=== PATIENT | male | born 1965 | race Caucasian/White ===

== ENCOUNTER 2025-02-27 06:47 | Emergency (ER) | payer SELFPAY ==
[2025-02-27] VITALS (8 sets, daily range): BP systolic 106–136; BP diastolic 60–65
--- NOTE | 2025-02-27 07:13 | ED.GENMED ---
History of Present Illness
General
Chief Complaint: Abdominal Pain
Source: patient
Exam Limitations: none
Time Seen by Provider: 02/27/25 07:03
History of Present Illness
History of Present Illness:
See MDM
Past History
Past History
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
ED Past Surgical History: None
Social History
Tobacco: Non-smoker
Alcohol: None
Personal:
Living: with family
Employment: Employed ([employer])
Family History
Family History: Other (Noncontributory)
Phy Exam
Physical Exam
Physical Exam:
See MDM
Course
Orders/Labs/Results
Orders:
Orders
02/27/25 06:58
EKG [Electrocardiogram (*1)] Urgent
Reason for Study: Abdominal Pain
02/27/25 06:59
EKG- Treatment ONCE
02/27/25 07:10
CT Abd/pelvis W Iv Cont Urgent
Comment:
Reason For Exam: upper abd pain
0.9% Sodium Chloride 1000 ml [Nss] 1,000 ml IV BOLUS
Ketorolac [Toradol] 30 mg IV NOW STA
Ondansetron Injectable [Zofran] 4 mg IV NOW STA
02/27/25 07:26
Complete Blood Count/With Diff Urgent
Comprehensive Metabolic Panel Urgent
Lipase Urgent
02/27/25 12:27
Oxycodone/Acetaminophen [Percocet 5/325] 1 tablet PO NOW STA
Abnormal Lab Results
02/27/25
07:26
WBC 13.7 H 10^3/uL
(4.8-10.8)
RBC 3.92 L 10^6/uL
(4.70-6.10)
Hgb 12.2 L g/dL
(13.0-18.0)
Hct 35.1 L %
(39.0-52.0)
MCH 31.1 H pg
(27.0-31.0)
Abs Immat Gran (auto) 0.1 H 10^3/uL
(0-0.05)
Absolute Neuts (auto) 10.3 H 10^3/uL
(1.4-6.5)
Absolute Monos (auto) 0.8 H 10^3/uL
(0.1-0.6)
Neutrophils % 75.3 H %
(42.2-75.2)
Lymphocytes % 18.1 L %
(20.5-51.1)
Glucose 266 H mg/dl
(70-99)
AST 16 L U/L
(17-59)
Total Protein 6.2 L g/dl
(6.3-8.2)
Lipase 903 H U/L
(23-300)
02/27/25 07:26
02/27/25 07:26
Vital Signs
Initial and Last Documented VS:
Initial Vital Signs
Temp Pulse Resp BP Pulse Ox
97.4 F 47 18 131/61 100
02/27/25 06:54 02/27/25 06:54 02/27/25 06:54 02/27/25 06:54 02/27/25 06:54
Last Documented Vital Signs
Temp Pulse Resp BP Pulse Ox
97.4 F 56 17 121/64 98
02/27/25 06:54 02/27/25 11:30 02/27/25 11:30 02/27/25 11:00 02/27/25 11:30
MDM/Problems Addressed
Differential Diagnosis Includes:
Note:
CHIEF COMPLAINT(S)
Abdominal pain
HISTORY OF PRESENT ILLNESS
The patient is a 60-year-old male presenting with abdominal pain that began approximately an hour and a half ago while he was asleep. The pain was significant enough to wake him from sleep. The patient describes the pain as occurring on both sides
of the abdomen and indicates discomfort upon palpation, especially when pressure is applied to the abdomen. He reports no changes in his bowel or eating habits and had no substantial meal the previous night. Additionally, the patient expresses
experiencing nausea. There is no history of surgeries on the abdomen. The patient denies chest pain, except for some discomfort in the chest area concurrent with the abdominal pain.
CHRONIC MEDICAL CONDITIONS SIGNIFICANTLY AFFECTING CARE
The patient mentions being on medication for anxiety
[employer]IAL [employer]MIN[employer]S AFFECTING HEALTH
Not applicable
ALLERGIES
None
PAST MEDICAL HISTORY
Anxiety
PAST SURGICAL HISTORY
None
MEDICATIONS
The patient confirms taking medication for anxiety
REVIEW OF SYSTEMS
- Gastrointestinal: Abdominal pain, nausea
- Respiratory: Discomfort on taking a deep breath
- Cardiovascular: Denies general chest pain but reports discomfort in the chest area
PHYSICAL EXAM
General: Alert, no acute distress.
Skin: Warm, dry.
Head: Normocephalic, atraumatic
Neck: Appears supple, trachea midline.
Eyes, Ears, Nose, Mouth, and Throat: Dry mucous membranes
Cardiovascular: No signs of cyanosis
Respiratory: Respirations are non-labored.
Abdomen: Non-distended. Mild tenderness to right upper and left upper quadrant without rebound
Musculoskeletal: No deformities
Neurological: No focal neurological deficit observed.
Psychiatric: Cooperative, appropriate mood and affect.
PROBLEM LIST
Acute:
- Abdominal pain
- Nausea
- Discomfort on breathing
Chronic:
- Hypertension
PLAN
- Conduct blood tests and electrocardiogram (EKG), which has been reported as within normal limits.
- Administer medication for nausea and provide intravenous fluids.
- Perform computed tomography (CT) scan of the abdomen to investigate possible surgical or infectious causes for the pain.
DIFFERENTIAL DIAGNOSIS
The Differential Diagnosis includes, in no particular order and is not limited to:
- Acute gastroenteritis
- Peptic ulcer disease
- Gallbladder disease (cholecystitis)
- Pancreatitis
- Intestinal obstruction
- Diverticulitis
- Gastric or intestinal perforation
- Renal colic
- Abdominal aortic aneurysm
- Myocardial infarction
EKG
My independent EKG interpretation is:
- Time of EKG: Not specified
- Rhythm: Sinus bradycardia with a sinus arrhythmia
- Heart rate: 51 beats per minute
- NM interval: Within normal limits
- QRS duration: Within normal limits
- QT interval: Within normal limits
- [place]: Normal axis
- Abnormalities observed: No ST elevation
SUMMARY OF ENCOUNTER
The 60-year-old male patient was seen in the emergency department due to the sudden onset of abdominal pain that began approximately an hour and a half ago while he was asleep. The pain was significant enough to wake him and was located on both
sides of the abdomen with discomfort upon palpation. Associated symptoms included nausea and some chest discomfort concurrent with the abdominal pain. Initial investigations included blood tests, the results of which revealed an elevated lipase
level, suggesting possible pancreatitis. A CT scan of the abdomen was conducted and showed no acute pathology. Given the elevated lipase and potential concern for pancreatitis, I discussed the case with the patient who ultimately felt comfortable
with outpatient management. We discussed dietary modifications and the necessity for follow-up with a service rig operator.
DISPOSITION
Discharge
ASSESSMENT
The patient presents with abdominal pain with significant tenderness and elevated lipase, suggestive of pancreatitis. CT scan shows no acute pathology.
EMERGENCY TREATMENTS ADMINISTERED
The patient was given medication for nausea and received intravenous fluids during the visit.
PLAN
The patient is advised to graduate his diet slowly to avoid exacerbating symptoms. Follow-up with a service rig operator is recommended for further evaluation of the elevated lipase and potential pancreatitis. The patient was instructed on return
precautions, including worsening pain or new symptoms.
INDEPENDENT REVIEW OF LABS AND INTERPRETATION OF TESTS
My independent review of the lipase test indicates an elevated lipase level, suggestive of pancreatitis.
My independent interpretation of the CT scan of the abdomen indicates no acute pathology, helping guide the decision for outpatient management.
PATIENT EDUCATION AND COUNSELING
The patient was educated on symptoms indicating possible complications, such as increased pain, fever, or vomiting, which should prompt immediate return to the emergency department. He was also counseled on dietary modifications to prevent
aggravation of his symptoms and the importance of follow-up care with a service rig operator.
FOLLOW-UP INSTRUCTIONS
The patient is instructed to follow up with a service rig operator for further evaluation of the elevated lipase and management of potential pancreatitis. He is also to seek medical attention if his symptoms worsen or new symptoms arise.
MEDICATION RECONCILIATION
The patient received medication for nausea and intravenous fluids during the visit.
MEDICAL DECISION MAKING
- Number and Complexity of Problems Addressed: Chronic conditions affecting care include hypertension. The differential diagnosis consists of acute gastroenteritis, peptic ulcer disease, gallbladder disease (cholecystitis), pancreatitis, intestinal
obstruction, diverticulitis, gastric or intestinal perforation, renal colic, abdominal aortic aneurysm, and myocardial infarction.
- Data:
Category 1
My independent interpretation of EKG indicates sinus bradycardia with a sinus arrhythmia, heart rate of 51 bpm, and no ST elevation.
My independent interpretation of the CT scan showed no acute pathology.
- Risk:
Consideration of Admission/Observation: Escalation of care including admission was considered given the elevated lipase level and potential pancreatitis. However, due to the absence of acute life-threatening pathology on the CT scan and the patient
feeling comfortable and agreeable with outpatient management, discharge was deemed appropriate with plans for close follow-up.
DIAGNOSIS
Pancreatitis (ICD-10: K85.9)
*Pulse Oximetry
SaO2: 100
Oxygen Mode of Delivery: Room air
Patient hypoxic: no
*Critical Care Note
Total Time (30-74mins, 75-104mins- exclusive of procedures): Not Applicable
ED Attending Note
-
Portions of this chart may have been created with voice recognition software.� Occasional wrong word or��sound alike� substitutions may have occurred due to the inherent limitations of voice recognition software.
Discharge Plan
Departure
Patient Disposition: Home (Routine Discharge)
Date of Disposition: 02/27/25
Time of Disposition: 12:28
Patient with high blood pressure during this ER visit?: No
Discharge Problem:
Pancreatitis
Instructions: Pancreatitis (DC)
Prescriptions:
New
ondansetron 4 mg Tablet,Disintegrating
4 mg PO BIDPRN PRN (Reason: nausea/vomiting) Qty: 10 0RF
oxycodone 5 mg tablet
5 mg PO Q8H PRN (Reason: Pain) Qty: 20 0RF
No Action
quetiapine 25 MG tablet
25 mg PO DAILY
lamotrigine 150 MG tablet
150 mg PO DAILY
omeprazole 20 MG capsule,delayed release(DR/EC)
20 mg PO DAILY
duloxetine 60 MG capsule,delayed release(DR/EC)
60 mg PO DAILY
hydrocodone-acetaminophen [[place]] 1 EACH tablet
1 ea PO Q6HPRN PRN (Reason: pain) Qty: 40 0RF
Rx Instructions:
Take 1 tablet four times a day, every 6 hours for pain
lorazepam 1 MG tablet
1 mg PO TIDPRN PRN (Reason: pain/spasms) Qty: 40 0RF
Referrals:
Srinivasan Pizano DO [Family Provider, Family Practice]
Massimo Morales MD [Active, Gastroenterology]
Activity Restrictions/Additional Instructions:
Please return for any worsening symptoms.
You may return at any time if you have further concerns.
Please follow up with your doctor at the first available appointment, preferably this week.
Please make an appointment to see the service rig operator.
Thank you for choosing [facility].
Interventions
Interventions:
*Risk Screen - Suicide Last Done: 02/27/25 06:54
*ED COVID-19 Vaccine History Last Done: 02/27/25 06:54
*ED Influenza Vaccine History Last Done: 02/27/25 06:54
Discharge Date and Time
Print Language: YORUBA
[2025-02-27] MEDS: TORADOL 30 MG IV (07:29)
[2025-02-27] MEDS: ZOFRAN 4 MG IV (07:29)
[2025-02-27] MEDS: NSS 1000 IV (07:30)
[2025-02-27 07:35] LABS: Hematocrit 35.1 % (39.0-52.0); Hemoglobin 12.2 g/dL (13.0-18.0); Mean Corp Hgb Conc. 34.8 g/dL (33.0-37.0); Mean Corpuscular Volume 89.5 fL (80.0-94.0); Nucleated Red Blood Cells % 0 % (-); Platelet Count 313 10^3/uL (130-400); Red Cell Dist. Width 13.1 % (11.5-14.5)
[2025-02-27 07:50] LABS: ALT (SGPT) 13 U/L (0-50); AST (SGOT) 16 U/L (17-59); Albumin 3.8 g/dl (3.5-5.0); Alkaline Phosphatase 84 U/L (38-126); Blood Urea Nitrogen 10 mg/dl (9-20); Calcium 8.9 mg/dl (8.4-10.2); Carbon Dioxide 29 mmol/L (22-30); Chloride 105 mmol/L (98-107); Glucose 266 mg/dl (70-99); Lipase 903 U/L (23-300); Potassium 3.6 mmol/L (3.5-5.1); Sodium 139 mmol/L (135-145); Total Protein 6.2 g/dl (6.3-8.2); eGFR > 60.00
[2025-02-27] MEDS: PERCOCET 5/325 1 TABLET PO (12:34)
== END 2025-02-27 12:56 | disposition home or self-care (01) ==
LOC: EMR 06:47
PROVIDERS: EMERGENCY PHYSICIAN Student in an Organized Health Care Education/Training Program; FAMILY PHYSICIAN Family Medicine
DX: K85.90 Acute pancreatitis without necrosis or infection, unspecified (principal); F41.8 Other specified anxiety disorders; Z71.3 Dietary counseling and surveillance; Z91.51 Personal history of suicidal behavior
CPT/HCPCS: 99284; 96374; 96375; 96361; 74177; 80053; 83690; 85025; 93005; Q9967